=== PATIENT | female | born 1980 | race Caucasian/White ===

== ENCOUNTER → 2023-01-06 | Outpatient (CLI) | payer SELFPAY | END | disposition home or self-care (01) | LOC: LAB 15:10 → BIMLAB 15:53 | PROVIDERS: PCP Nurse Practitioner Family; Referring Provider Nurse Practitioner Family; Visit Provider Nurse Practitioner Family | DX: M25.50 Pain in unspecified joint (principal); R42 Dizziness and giddiness; L74.519 Primary focal hyperhidrosis, unspecified | CPT/HCPCS: 36415 ==

== ENCOUNTER → 2023-12-28 | Outpatient (CLI) | payer SELFPAY | END | disposition home or self-care (01) | PROVIDERS: PCP Nurse Practitioner Family; Referring Provider Nurse Practitioner Family; Visit Provider Nurse Practitioner Family | DX: A69.20 Lyme disease, unspecified (principal); R53.83 Other fatigue ==

== ENCOUNTER → 2024-09-03 | Outpatient (CLI) | payer SELFPAY ==
[2024-09-03 18:26] LABS: Ferritin 33 ng/mL (22-378); Iron 31 ug/dL (50-170)
== END | disposition home or self-care (01) ==
LOC: BIMLAB 15:48
PROVIDERS: PCP Nurse Practitioner Family; Visit Provider Nurse Practitioner Family
DX: R79.89 Other specified abnormal findings of blood chemistry (principal)
CPT/HCPCS: 36415; 82728; 83540